=== PATIENT | female | born 2000 | race African-American/Black ===

== ENCOUNTER 2020-08-06 14:19 | Emergency (ER) | payer BC ==
[~2020-08-06] VITALS: Ht 165 cm; Wt 63.6 kg
[2020-08-06 14:35] LABS: BASOPHILS # (AUTO) 0.1 10^3/uL (0.0-0.1); BASOPHILS % (AUTO) 1 % (0-10); EOSINOPHILS # (AUTO) 0.1 10^3/uL (0.0-0.3); EOSINOPHILS % (AUTO) 1 % (0-10); HEMATOCRIT 37 % (35-52); HEMOGLOBIN 13.1 g/dL (11.5-16.0); LYMPHOCYTES # (AUTO) 0.9 10^3/uL (1.0-4.0); LYMPHOCYTES % (AUTO) 5 % (12-44); MEAN CORPUSCULAR HEMOGLOBIN 31 pg (25-34); MEAN CORPUSCULAR HGB CONC 35 g/dL (32-36); MEAN CORPUSCULAR VOLUME 89 fL (80-99); MEAN PLATELET VOLUME 9.9 fL (9.0-12.2); MONOCYTES # (AUTO) 0.9 10^3/uL (0.0-1.0); MONOCYTES % (AUTO) 5 % (0-12); NEUTROPHILS # (AUTO) 14.9 10^3/uL (1.8-7.8); NEUTROPHILS % (AUTO) 87 % (42-75); PLATELET COUNT 152 10^3/uL (130-400); WHITE BLOOD COUNT 17.1 10^3/uL (4.3-11.0)
--- NOTE | 2020-08-06 14:44 | ED Abdominal Pain ---
General Chief Complaint: Abdominal/GI Problems Stated Complaint: ABD PAIN/HEADACHE/DIARRHEA/VOMITING Nursing Triage Note: c/o abdomen pain n/v/d since saturday the . Sepsis Screen: No Definite Risk Source of Information: Patient Exam Limitations: No Limitations History of Present Illness Date Seen by Provider: Aug 06, 2020 Time Seen by Provider: 14:31 Initial Comments Well-appearing 19-year-old female presents to the ER via POV with complaints of generalized abdominal pain, nausea, vomiting, diarrhea x5 days. States that she has not been able to eat and has had very little liquids due to pain. States she developed a headache 3 days ago and generalized body aches all over her body. States pain is constant, aching, rated 6/10. Has not been able to take any cpgr-[id number] medications for symptoms due to extreme nausea. States that she did have her Meningococcal vaccine in 2018. Last menstrual period 2 weeks ago. Past medical history includes asthma. Does not take any current medications. Denies tobacco, alcohol, illicit drug use. Allergies and Home Medications Allergies Coded Allergies: No Known Drug Allergies (Unverified , 08/06/20) Patient Home Medication List Home Medication List Reviewed: Yes Review of Systems Review of Systems Constitutional: chills, dizziness, weakness EENTM: No Blurred Vision, No Double Vision, No Nose Congestion, No Throat Pain, No Throat Swelling; Other (photosensitivity ) Respiratory: No Symptoms Reported Cardiovascular: No Symptoms Reported Gastrointestinal: Denies Abdomen Distended; Abdominal Pain, Diarrhea; Denies Difficulty Swallowing; Nausea, Poor Appetite, Poor Fluid Intake; Denies Rectal Bleeding; Vomiting Genitourinary: Denies Burning, Denies Discharge Musculoskeletal: muscle pain, muscle stiffness, muscle weakness, neck pain Psychiatric/Neurological: No Symptoms Reported Endocrine: No Symptoms Reported Hematologic/Lymphatic: No Symptoms Reported Past Hdapwfm-Lshujq-Bapnor Hx Patient Social History Alcohol Use: Denies Use Smoking Status: Never a Smoker Recent Infectious Disease Expo: No Recent Hopitalizations: No Past Medical History Surgeries: No Respiratory: Yes Asthma Cardiac: No Neurological: No Genitourinary: No Gastrointestinal: No Musculoskeletal: No Endocrine: No HEENT: No Cancer: No Psychosocial: No Integumentary: No Blood Disorders: No Physical Exam Vital Signs Vital Signs - First Documented 08/06/20 08/06/20 14:24 15:30 Temp 37.2 Pulse 130 Resp 16 B/P (MAP) 95/66 (76) Pulse Ox 98 O2 Delivery Room Air Capillary Refill : Less Than 3 Seconds Height/Weight/BMI Height: '" Weight: lbs. oz. kg; 23.00 BMI Method: General Appearance: WD/WN, no apparent distress HEENT: PERRL/EOMI, normal ENT inspection, pharynx normal, other Neck: full range of motion, supple, normal inspection, tender lateral, tender midline Respiratory: chest non-tender, lungs clear, normal breath sounds, no respiratory distress, no accessory muscle use Cardiovascular: normal peripheral pulses, regular rate, rhythm, no edema, no gallop, no murmur Gastrointestinal: normal bowel sounds, non tender, soft Extremities: normal range of motion, non-tender, normal inspection Back: normal inspection, no vertebral tenderness Neurologic/Psychiatric: no motor/sensory deficits, alert, normal mood/affect, oriented x 3, other (Negative Kernig and Brudzinski) Skin: normal color, warm/dry Focused Exam Lactate Level 08/06/20 15:30: Lactic Acid Level 1.56 Lactic Acid Level Laboratory Tests Test 08/06/20 15:30 Lactic Acid Level 1.56 MMOL/L (0.50-2.00) Progress/Results/Core Measures Results/Orders Lab Results Laboratory Tests Test 08/06/20 14:25 08/06/20 15:30 08/06/20 15:49 08/06/20 16:25 Range/Units White Blood Count 17.1 H 4.3-11.0 10^3/uL Red Blood Count 4.17 3.80-5.11 10^6/uL Hemoglobin 13.1 11.5-16.0 g/dL Hematocrit 37 35-52 % Mean Corpuscular Volume 89 80-99 fL Mean Corpuscular Hemoglobin 31 25-34 pg Mean Corpuscular Hemoglobin Concent 35 32-36 g/dL Red Cell Distribution Width 13.2 10.0-14.5 % Platelet Count 152 130-400 10^3/uL Mean Platelet Volume 9.9 9.0-12.2 fL Immature Granulocyte % (Auto) 1 % Neutrophils (%) (Auto) 87 H 42-75 % Lymphocytes (%) (Auto) 5 L 12-44 % Monocytes (%) (Auto) 5 0-12 % Eosinophils (%) (Auto) 1 0-10 % Basophils (%) (Auto) 1 0-10 % Neutrophils # (Auto) 14.9 H 1.8-7.8 10^3/uL Lymphocytes # (Auto) 0.9 L 1.0-4.0 10^3/uL Monocytes # (Auto) 0.9 0.0-1.0 10^3/uL Eosinophils # (Auto) 0.1 0.0-0.3 10^3/uL Basophils # (Auto) 0.1 0.0-0.1 10^3/uL Immature Granulocyte # (Auto) 0.2 H 0.0-0.1 10^3/uL Neutrophils % (Manual) 70 % Lymphocytes % (Manual) 5 % Monocytes % (Manual) 2 % Metamyelocytes % 1 % Band Neutrophils 22 % Toxic Granulation 1+ Blood Morphology Comment NORMAL Sodium Level 130 L 132 L 135-145 MMOL/L Potassium Level 3.5 L 3.1 L 3.6-5.0 MMOL/L Chloride Level 93 L 101 98-107 MMOL/L Carbon Dioxide Level 15 L 13 L 21-32 MMOL/L Anion Gap 22 H 18 H 5-14 MMOL/L Blood Urea Nitrogen 41 H 40 H 7-18 MG/DL Creatinine 7.22 H 6.56 #H 0.60-1.30 MG/DL Estimat Glomerular Filtration Rate 9 10 BUN/Creatinine Ratio 6 6 Glucose Level 147 H 125 H 70-105 MG/DL Calcium Level 10.0 8.0 L 8.5-10.1 MG/DL Corrected Calcium 9.8 8.5-10.1 MG/DL Total Bilirubin 1.4 H 0.1-1.0 MG/DL Aspartate Amino Transf (AST/SGOT) 52 H 5-34 U/L Alanine Aminotransferase (ALT/SGPT) 39 0-55 U/L Alkaline Phosphatase 82 40-136 U/L Total Creatine Kinase 54 29-168 U/L C-Reactive Protein High Sensitivity 30.80 H 0.00-0.50 MG/DL Total Protein 8.7 H 6.4-8.2 GM/DL Albumin 4.2 3.2-4.5 GM/DL Serum Test, Qualitative NEGATIVE NEGATIVE Lactic Acid Level 1.56 0.50-2.00 MMOL/L Influenza Type A (RT-PCR) Not Detected Not Detecte Influenza Type B (RT-PCR) Not Detected Not Detecte SARS-CoV-2 RNA (RT-PCR) Not Detected Not Detecte Serum Alcohol < 10 <10 MG/DL Test 08/06/20 18:08 Range/Units Urine Color YELLOW Urine Clarity CLOUDY Urine pH 6.0 5-9 Urine Specific [place] 1.025 H 1.016-1.022 Urine Protein 3+ H NEGATIVE Urine Glucose (UA) NEGATIVE NEGATIVE Urine Ketones TRACE H NEGATIVE Urine Nitrite NEGATIVE NEGATIVE Urine Bilirubin 2+ H NEGATIVE Urine Urobilinogen 0.2 < = 1.0 MG/DL Urine Leukocyte Esterase 2+ H NEGATIVE Urine RBC (Auto) 3+ H NEGATIVE Urine RBC 2-5 H /HPF Urine WBC >100 H /HPF Urine Squamous Epithelial Cells 5-10 /HPF Urine Crystals NONE /LPF Urine Bacteria LARGE H /HPF Urine Casts PRESENT /LPF Urine Hyaline Casts RARE /LPF Urine Granular Casts 0-2 H /LPF Urine Mucus NEGATIVE /LPF Urine Culture Indicated YES My Orders Orders - ANNEMARIE GUEVARA MAKE UP EDITOR Ua Culture If Indicated (08/06/20 14:21) Urine Bedside (08/06/20 14:21) Cbc With Automated Diff (08/06/20 14:24) Comprehensive Metabolic Panel (08/06/20 14:24) Hs C Reactive Protein (08/06/20 14:24) Manual Differential (08/06/20 14:25) Hcg,Qualitative Serum (08/06/20 14:39) Ondansetron Injection (Zofran Injectio (08/06/20 14:45) Ketorolac Injection (Toradol Injection) (08/06/20 14:45) Creatine Kinase (08/06/20 14:39) Covid 19 Inhouse Test (08/06/20 14:44) Influenza A And B By Pcr (08/06/20 14:44) Ns Iv 1000 Ml (Sodium Chloride 0.9%) (08/06/20 15:00) Ct Abdomen/Pelvis Wo (08/06/20 15:01) Lactic Acid Analyzer (08/06/20 15:09) Ct Head Wo (08/06/20 15:25) Basic Metabolic Panel (08/06/20 17:00) Ns Iv 1000 Ml (Sodium Chloride 0.9%) (08/06/20 16:30) Urine Culture (08/06/20 18:08) Alcohol (08/06/20 18:24) Ns W/Kcl 20 Meq/L (Ns Iv W/Kcl 20 Meq/L) (08/06/20 18:30) Ceftriaxone (Rocephin) (08/06/20 18:45) Medications Given in ED Current Medications Medications Dose Ordered Sig/Zeus Route Start Time Stop Time Status Last Admin Dose Admin Ketorolac Tromethamine 15 mg ONCE ONCE IVP 08/06/20 14:45 08/06/20 14:46 DC 08/06/20 14:55 15 MG Ondansetron HCl 4 mg ONCE ONCE IVP 08/06/20 14:45 08/06/20 14:46 DC 08/06/20 14:54 4 MG Sodium Chloride 1,000 ml @ 999 mls/hr ONCE ONCE IV 08/06/20 14:45 08/06/20 15:45 DC 08/06/20 14:37 999 MLS/HR Sodium Chloride 1,000 ml @ 999 mls/hr Q1H ONCE IV 08/06/20 15:00 08/06/20 16:00 DC 08/06/20 15:34 75 MLS/HR Vital Signs/I&O 08/06/20 08/06/20 08/06/20 14:24 14:31 15:30 Temp 37.2 Pulse 130 130 114 145 155 Resp 16 16 B/P (MAP) 95/66 (76) 95/66 108/86 (93) 91/57 106/45 Pulse Ox 98 97 O2 Delivery Room Air Blood Pressure Mean: 76 Progress Progress Note : Progress Note Patient examined and in no acute distress. Her systolic blood pressure in the 90s and she is tachycardic. Initiated IV fluids normal saline 1 L. Will give Zofran 4 mg IV push and Toradol 15 mg IV push for nausea and pain. Orders placed for CBC, CMP, CRP, serum , UA. Labs reviewed, noted to have elevated white count, elevated BUN and creatinine (see labs for values). BUN to creatinine ratio is 5:1. Initial concern is for severe dehydration leading to acute renal failure. However we have no nephrology or dialysis capabilities at this facility, initiated call to [facility] for possible transfer. Still pending lactic acid, CRP UA, CT abdomen pelvis without contrast. Orders placed for head CT without due to recent headache and neck tenderness. Discussed case with [facility] at 1528. Spoke with Dr. Marck Mariano, patient patient's history and presentation this is likely due to extreme dehydration. He recommended giving patient a fluid challenge and repeating chemistry to see if she has any response. Would like update of labs once completed. CT head and abdomen pelvis without contrast were negative for acute pathology. She received total of 2 L of normal saline bolus and had 3 L going at 250 ml/hr. Repeat chemistry showed BUN40, creatinine6.56, GFR 10. Called hospitalist on-call Dr. Hwang and reviewed case with him and [facility] recommendations. He expresses concerns for ATN and lack of urine output. Due to lack of nephrology and dialysis capabilities he would like patient transferred to higher level of care. Called [facility] and updated on remaining labs and discussion with hospitalist. Dr. Marck Mariano accepted transfer at 1828. Reviewed recommendations with patient. Agreeable to transfer to [facility] for further care. Patient stable. Throughout ED course she only managed to urinate approximately 2 cc of urine. Was able to obtain urine sample and she is noted to have a severe urinary tract infection, has large amount of bacteria, > 100 WBC, nitrite negative, 3+ protein. Orders placed for Rocephin 1 g IV. Patient father called and requested I speak to her about her use of vape and alcohol intake. Additionally, states that I should discuss with her not taking medications that do not belong to her. Patient states that she does not smoke, does not use alcohol, denies any prescription/illicit drug use. Diagnostic Imaging Diagonstic Imaging: CT Plain Films/CT/US/NM/MRI: abdomen, pelvis Comments [id number] [place], [place] NAME: LIO [facility] REC#: [id number] PT STATUS: REG ER : 2000 PHYSICIAN: ANNEMARIE GUEVARA MAKE UP EDITOR ADMIT DATE: 08/06/20/ER Signed Date of Exam:08/06/20 CT ABDOMEN/PELVIS WO PROCEDURE: CT abdomen and pelvis without contrast. TECHNIQUE: Multiple contiguous axial images were obtained through the abdomen and pelvis without the use of intravenous contrast. Auto Exposure Controls were utilized during the CT exam to meet ALARA standards for radiation dose reduction. INDICATION: Abdominal pain with nausea and vomiting. FINDINGS: Heart size is normal. The lung bases are clear. The liver is normal in size and without focal lesions. Gallbladder is unremarkable. No biliary ductal dilatation. Spleen is normal. The pancreas and adrenal glands are unremarkable. Kidneys are normal in appearance. Aorta is nonaneurysmal. Bowel gas pattern is nonspecific. There is no free air. There is no ascites. No focal inflammatory change. Uterus is normal. Bladder is normal. There is fluid in the rectum possibly reflecting diarrheal state. The osseous structures are unremarkable. IMPRESSION: Fluid-filled rectum, possibly reflecting diarrheal state, otherwise unremarkable noncontrast CT abdomen and pelvis. Dictated by: Dictated on workstation # [id number] Dict: 08/06/20 1520 Trans: 08/06/201549 [id number] Interpreted by: CLEVELAND LAWTON MD Electronically signed by: CLEVELAND LAWTON MD 08/06/201549 Reviewed: Reviewed by Nv Diagonstic Imaging: CT Plain Films/CT/US/NM/MRI: head Comments [facility] [place] [place] NAME: LIO CHRIS [facility] REC#: [id number] PT STATUS: REG ER : 2000 PHYSICIAN: ANNEMARIE GUEVARA APRN ADMIT DATE: 08/06/20/ER Signed Date of Exam:08/06/20 CT HEAD WO PROCEDURE: CT head without contrast. TECHNIQUE: Multiple contiguous axial images were obtained through the brain without the use of intravenous contrast. Auto Exposure Controls were utilized during the CT exam to meet ALARA standards for radiation dose reduction. INDICATION: Headache. FINDINGS: The ventricles and sulci are within normal limits. There is no hydrocephalus or cerebral edema. There is no midline shift or mass effect. There is no intracranial mass, hemorrhage, or extra-axial fluid collection. The visualized paranasal sinuses and mastoid air cells are clear. There are no regional areas of decreased attenuation appreciated to suggest an acute CVA. IMPRESSION: No acute intracranial abnormality. Dictated by: Dictated on workstation # [id number] Dict: 08/06/20 1546 Trans: 08/06/201549 [id number] Interpreted by: CLEVELAND LAWTON MD Electronically signed by: CLEVELAND LAWTON MD 08/06/20 2084 Reviewed: Reviewed by Me Departure Communication (Admissions) Time/Spoke to Consulting Phy: 17:[address] Hwang hospitalist on-call for admission for rehydration. Her repeat labs showed some improvement however she continues to make no urine after 2 L saline bolus and third infusing at 250 mils per hour. He declines admission due to concerns for ATN and request patient transfer to higher level of care as we have no nephrology or dialysis capabilities. Family Conversation Updated patient father per patient request. Impression Primary Impression: Acute renal failure Additional Impressions: Urinary tract infection Dehydration Disposition: XFER SHT-TRM HOSP Condition: Stable Transfer Transfer Reason: Exceeds level of care Time Spoke to Accepting Phy: 18:[address] Marck Mariano accepting patient transfer. Transfer Time: 18:39 Transfer Facility: [facility] Method of Transfer: EMS ANNEMARIE GUEVARA MAKE UP EDITOR Aug 06, 2020 14:44
[2020-08-06] MEDS ORDERED: NS IV 1000 ML 1,000 ML IV ONE ×2 (14:45→15:00)
[2020-08-06] MEDS ORDERED: ONDANSETRON 4 MG/2 ML (SDV) Z0FRAN IVP ONE (14:45)
[2020-08-06] MEDS ORDERED: KETOROLAC 30 MG/ML VIAL IVP ONE (14:45)
[2020-08-06 14:46] LABS: ALBUMIN 4.2 GM/DL (3.2-4.5); POTASSIUM 3.5 MMOL/L (3.6-5.0)
[2020-08-06 14:49] LABS: TOTAL PROTEIN 8.7 GM/DL (6.4-8.2)
[2020-08-06 14:51] LABS: BILIRUBIN,TOTAL 1.4 MG/DL (0.1-1.0)
[2020-08-06 15:06] LABS: BAND NEUTROPHILS 22 %; LYMPHOCYTES % (MANUAL) 5 %; METAMYELOCYTES % 1 %; MONOCYTES % (MANUAL) 2 %; NEUTROPHILS % (MANUAL) 70 %; RBC MORPH NORMAL; TOXIC GRANULATION/VACUOLAZATIO 1+
[2020-08-06 15:08] LABS: CREATININE SERUM 7.22 MG/DL (0.60-1.30)
--- NOTE | 2020-08-06 15:39 | Diagnostic Imaging Report ---
PROCEDURE: CT abdomen and pelvis without contrast. TECHNIQUE: Multiple contiguous axial images were obtained through the abdomen and pelvis without the use of intravenous contrast. Auto Exposure Controls were utilized during the CT exam to meet ALARA standards for radiation dose reduction. INDICATION: Abdominal pain with nausea and vomiting. FINDINGS: Heart size is normal. The lung bases are clear. The liver is normal in size and without focal lesions. Gallbladder is unremarkable. No biliary ductal dilatation. Spleen is normal. The pancreas and adrenal glands are unremarkable. Kidneys are normal in appearance. Aorta is nonaneurysmal. Bowel gas pattern is nonspecific. There is no free air. There is no ascites. No focal inflammatory change. Uterus is normal. Bladder is normal. There is fluid in the rectum possibly reflecting diarrheal state. The osseous structures are unremarkable. IMPRESSION: Fluid-filled rectum, possibly reflecting diarrheal state, otherwise unremarkable noncontrast CT abdomen and pelvis. Dictated by: Dictated on workstation # [id number]
--- NOTE | 2020-08-06 15:50 | Diagnostic Imaging Report ---
PROCEDURE: CT head without contrast. TECHNIQUE: Multiple contiguous axial images were obtained through the brain without the use of intravenous contrast. Auto Exposure Controls were utilized during the CT exam to meet ALARA standards for radiation dose reduction. INDICATION: Headache. FINDINGS: The ventricles and sulci are within normal limits. There is no hydrocephalus or cerebral edema. There is no midline shift or mass effect. There is no intracranial mass, hemorrhage, or extra-axial fluid collection. The visualized paranasal sinuses and mastoid air cells are clear. There are no regional areas of decreased attenuation appreciated to suggest an acute CVA. IMPRESSION: No acute intracranial abnormality. Dictated by: Dictated on workstation # [id number]
[2020-08-06] MEDS ORDERED: NS IV 1000 ML 1,000 ML IV SCH (16:30)
[2020-08-06 16:44] LABS: POTASSIUM 3.1 MMOL/L (3.6-5.0)
[2020-08-06 16:50] LABS: CREATININE SERUM 6.56 MG/DL (0.60-1.30)
[2020-08-06 18:14] LABS: CLARITY,URINE CLOUDY; COLOR,URINE YELLOW; GLUCOSE, URINE (UA) NEGATIVE (NEGATIVE); KETONES,URINE TRACE (NEGATIVE); LEUKOCYTE ESTERASE ,URINE 2+ (NEGATIVE); NITRITE,URINE NEGATIVE (NEGATIVE); PROTEIN,URINE 3+ (NEGATIVE)
[2020-08-06 18:18] LABS: BILIRUBIN,URINE 2+ (NEGATIVE)
[2020-08-06 18:22] LABS: BACTERIA,URINE LARGE /HPF; GRANULAR CASTS,URINE 0-2 /LPF; HYALINE CASTS, URINE RARE /LPF; WBC,URINE >100 /HPF
[2020-08-06] MEDS ORDERED: NS W/KCL 20 MEQ/L 1,000 ML IV ONE (18:30)
[2020-08-06] MEDS ORDERED: cefTRIAXone 1,000 MG in WATER (STERILE) FOR INJECTION 10 ML IV ONE (18:45)
[2020-08-06 19:40] VITALS: BP 97/66
== END 2020-08-06 21:30 | disposition short-term general hospital (02) ==
LOC: ER 14:23
DX: N17.9 Acute kidney failure, unspecified (principal); N39.0 Urinary tract infection, site not specified; E86.0 Dehydration; J45.909 Unspecified asthma, uncomplicated; Z20.822 Contact with and (suspected) exposure to COVID-19
CPT/HCPCS: 70450; 74176; 80048; 80053; 81000; 82550; 83605; 84703; 85007; 85027; 86141; 87077; 87088; 87186; 87636; 99285; G0480; 36415; 80320

== ENCOUNTER 2022-08-17 21:20 | Emergency (ER) | payer OTHER, BC ==
[~2022-08-17] VITALS: Ht 165.1 cm; Wt 63.5 kg
[2022-08-17 21:30] VITALS: BP 111/61
--- NOTE | 2022-08-17 22:36 | ED Trauma-Vehiclar ---
General Chief Complaint: Trauma-Non Activation Stated Complaint: KNOT ON FOREHEAD Nursing Triage Note: PT AMB TO TRIAGE W C/O ABRUPTLY HITTING BRAKES WHILE DRIVING TO AVOID COLLISION W DEER BETWEEN [id number] TONIGHT. PT HIT HEAD ON STEERING WHEEL, LARGE HEMATOMA TO FOREHEAD. DENIES LOC, A&OX4. PT REPORTS DRINKING 3-4 BEERS EARLIER TODAY. Time Seen by MD: 22:29 Source: patient Exam Limitations: no limitations History of Present Illness Date Seen by Provider: Aug 17, 2022 Time Seen by Provider: 22:29 Allergies and Home Medications Allergies Coded Allergies: No Known Drug Allergies (Unverified , 08/06/20) Past Cxzfcbi-Ujabam-Bkcann Hx Patient Social History Tobacco Use?: No Smokeless Tobacco Frequency: Current Everyday User Use of E-Cig and/or Vaping dev: No Substance use?: Yes Substance type: Marijuana Alcohol Use?: Yes Alcohol Frequency: Once in a while Immunizations Up To Date First/Initial COVID19 Vaccinat: 2020 Second COVID19 Vaccination Chase: 2020 Third COVID19 Vaccination Date: NONE COVID19 Vaccine Powerhouse Oiler: MODERNA X2 Past Medical History Surgeries: No Respiratory: Yes Asthma Cardiac: No Neurological: No Last Menstrual Period: Jul 28, 2022 Genitourinary: No Gastrointestinal: No Musculoskeletal: No Endocrine: No HEENT: No Cancer: No Psychosocial: No Integumentary: No Blood Disorders: No Physical Exam Vital Signs Vital Signs - First Documented 08/17/22 21:30 Temp 37.0 Pulse 138 Resp 18 B/P (MAP) 111/61 (78) Pulse Ox 97 O2 Delivery Room Air Capillary Refill : Less Than 3 Seconds Height, Weight, BMI Height: '" Weight: lbs. oz. kg; 23.00 BMI Method: Progress/Results/Core Measures Results/Orders Vital Signs/I&O 08/17/22 21:30 Temp 37.0 Pulse 138 Resp 18 B/P (MAP) 111/61 (78) Pulse Ox 97 O2 Delivery Room Air Blood Pressure Mean: 78 Departure Departure-Patient Inst. Referrals: NO,LOCAL PHYSICIAN (PCP/Family) Primary Care Physician PINKY VIERA MD Aug 17, 2022 22:36
== END 2022-08-17 22:24 | disposition left against medical advice (07) ==
LOC: EDUNIT# 21:20 → ER 21:23
DX: S00.83XA Contusion of other part of head, initial encounter (principal); F17.290 Nicotine dependence, other tobacco product, uncomplicated; W22.8XXA Striking against or struck by other objects, initial encounter; Y92.818 Other transport vehicle as the place of occurrence of the external cause
CPT/HCPCS: 99281